=== PATIENT | female | born 1975 | race Caucasian/White ===

== ENCOUNTER 2024-11-19 04:16 | Emergency (ER) | payer SELFPAY ==
[~2024-11-19] VITALS: Ht 160 cm; Wt 63.0 kg
[2024-11-19 04:38] VITALS: O2SAT 98
[2024-11-19 05:08] LABS: BASOPHILS % 0.2 % (0.0-2.0); EOSINOPHILS % 0.6 % (0.0-5.0); HEMATOCRIT. 34.8 % (36.0-48.0); HEMOGLOBIN. 11.4 g/dL (12.0-16.0); LYMPHOCYTES % 9.4 % (20.0-50.0); MEAN PLATELET VOLUME 9.1 fl (7.4-10.4); MONOCYTES % 3.8 % (2.0-8.0); NEUTROPHILS % 86.0 % (40.0-76.0); PLATELET 295 x1000/uL (130-400); RED BLOOD CELL COUNT 4.10 mill/uL (4.2-5.4); RED CELL DISTRIBUTION WIDTH 25.8 % (11.6-14.6)
[2024-11-19 05:10] LABS: HCG SCREEN NEGATIVE
[2024-11-19 05:12] LABS: CREATININE 0.7 mg/dL (0.6-1.0)
[2024-11-19 05:13] LABS: UREA NITROGEN BLOOD 14 mg/dL (9-23)
[2024-11-19 05:14] LABS: ASPARTATE AMINOTRANSFERASE 19 IU/L (<34); BILIRUBIN DIRECT 0.1 mg/dL (<=3.0)
[2024-11-19 05:15] LABS: BILIRUBIN TOTAL 0.6 mg/dL (0.1-1.0); PROTEIN TOTAL 7.4 g/dL (6.0-8.3)
[2024-11-19 05:18] LABS: ADD RBC MORPHOLOGY YES
[2024-11-19 05:34] LABS: TROPONIN I HIGH SENSITIVITY < 4 ng/L (3.0-34)
[2024-11-19 05:35] LABS: CLARITY URINE CLOUDY (CLEAR); COLOR URINE YELLOW (YELLOW); GLUCOSE URINE NEGATIVE (NEGATIVE); KETONES URINE NEGATIVE (NEGATIVE); LEUKOCYTE ESTERASE URINE TRACE (NEGATIVE); NITRITE URINE NEGATIVE (NEGATIVE); OCCULT BLOOD URINE NEGATIVE (NEGATIVE); PH URINE 5.0 (4.5-8.0); PROTEIN URINE NEGATIVE (NEGATIVE); SPECIFIC GRAVITY URINE 1.029 (1.005-1.030); UROBILINOGEN URINE 0.2 E.U./dL (0.2-1.0)
[2024-11-19 05:44] LABS: PLATELET ESTIMATE NORMAL
[2024-11-19 05:52] LABS: AMORPHOUS SEDIMENT URINE 1+ /lpf; BACTERIA URINE TRACE; RBC URINE NONE SEEN /hpf (0-2); SQUAMOUS EPITHELIAL CELL URINE 2+ /lpf (RARE/1+); WBC URINE 0-2 /hpf (0-2)
[2024-11-19] MEDS: SODIUM CHLORIDE 0.9% 1,000 ML IV ONE (06:34)
[2024-11-19] MEDS: MECLIZINE 25MG TABLET PO ONE (06:34)
[2024-11-19] MEDS: ONDANSETRON HCL 4MG/2ML INJ IV ONE (06:34)
[2024-11-19] MEDS ORDERED: MECL-299 PO (07:46)
[2024-11-19] MEDS ORDERED: ONDA4TAB50 PO (07:46)
[2024-11-19 08:12] VITALS: BP 140/78; PULSE 72; RESP 16; TEMP 37; O2SAT 99
== END 2024-11-19 08:13 | disposition home or self-care (01) ==
LOC: ER 04:16
DX: K52.9 Noninfective gastroenteritis and colitis, unspecified (principal); I10 Essential (primary) hypertension; R11.2 Nausea with vomiting, unspecified; R42 Dizziness and giddiness; E87.6 Hypokalemia; Z86.018 Personal history of other benign neoplasm; Z79.899 Other long term (current) drug therapy
CPT/HCPCS: 80076; 80048; 81003; 81025; 84703; 83690; 85025; 84484; 36415; 71045; 96361; 96374; 99284; J8597; J2405; J7030; Z7610